=== PATIENT | male | born 1965 | race Caucasian/White ===

== ENCOUNTER 2018-02-19 10:44 | Observation (INO) ==
[2018-02-19] MEDS ORDERED: *HR* Promethazine 25 MG/ML VIAL IVP PRN (13:32)
[2018-02-19] MEDS ORDERED: Ondansetron 4 MG/2 ML VIAL IVP PRN (13:32)
[2018-02-19] MEDS ORDERED: Naloxone 0.4 MG/ML INJ IVP PRN (13:32)
--- NOTE | 2018-02-19 13:42 | General Surg History&Physical ---
Date of Encounter: 02/19/18 Time of Encounter: 13:39 Assessment and Plan (1) Diverticulitis Current Visit: Yes Status: Acute The assessment and plan as outlined above was discussed with the patient and/or family members who expressed understanding and agreement. All questions were answered. Acute uncomplicated diverticulitis involving the distal descending colon per CT on 02/13/2018. He has been on outpatient Cipro and Flagyl with continued discomfort. We will admit him for bowel rest and IV antibiotics. Plan: NPO IV fluids supportive care and discomfort management incentive spirometry G.I. and DVT prophylaxis ambulate as tolerated serial abdominal exams repeat a.m. labs History of Present Illness Chief complaint: Abdominal pain HPI: Mr. Estes is a 52 year old male who presents for admission to the hospital for failed outpatient therapy for known diverticulitis. His last colonoscopy was approximately 1.5 years ago. He had a CT recently which confirmed diverticulitis. He is been treated as an outpatient with PO Cipro Flagyl but states his discomfort is ongoing. He reports discomfort in the left lower quadrant he preemptively changed his diet to liquids only and states this as not been effective. Please see hard chart for printed copy of HPI. Past Med Surg Social Fam HX - Past Medical History Medical history: GERD, hyperlipidemia, hypertension Psychiatric history: no psych history - Past Surgical History Surgical History: cholecystectomy - Social History Smoking Status: Never smoker Alcohol use: none Drug use: none Medications and Allergies 3 Allergy/AdvReac Type Severity Reaction Status Date / Time No Known Allergies Allergy Verified 07/21/15 12:26 Review of Systems All systems PM: The remainder of the systems were reviewed and are negative General Surgery Exam Initial Vital Signs Temp Pulse Resp BP Pulse Ox 97.5 F L 106 15 169/105 93 02/19/18 13:36 02/19/18 13:36 02/19/18 13:36 02/19/18 13:36 02/19/18 13:36 Results - Labs 02/19/18 13:52 02/19/18 13:52 All other labs normal.
[2018-02-19 14:10] LABS: Basophils # 0.1 K/mcL (0.0-0.2); Basophils % 0.7 %; Eosinophils # 0.1 K/mcL (0.0-0.6); Eosinophils % 1.6 %; Hematocrit 48.6 % (37.5-50.1); Hemoglobin 16.8 g/dL (12.9-16.9); Immature Granulocytes % 0.5 % (0-4); Lymphocytes % 23.4 %; Mean Corpuscular HGB Conc 34.6 g/dL (31.6-35.5); Mean Corpuscular Volume 83.9 fL (83.0-100.0); Mean Platelet Volume 9.3 fL (9.4-12.4); Monocytes # 0.8 K/mcL (0.0-1.3); Monocytes % 8.8 %; Neutrophils # 5.6 K/mcL (1.6-8.9); Platelet Count 322 K/mcL (140-400); Red Blood Count 5.79 M/mcL (4.19-5.50); Red Cell Distribution Width 12.4 % (11.5-14.5)
[2018-02-19 14:36] LABS: Alanine Aminotransferase 48 Units/L (7-52); Albumin 4.5 g/dL (3.5-5.7); Albumin/Globulin Ratio 1.5 (1.1-2.2); Alkaline Phosphatase 90 Units/L (34-104); Amylase 44 Units/L (29-103); Aspartate Amino Transferase 34 Units/L (13-39); BUN/Creatinine Ratio 11 (6-26); Bilirubin,Direct 0.1 mg/dL (0.0-0.2); Bilirubin,Indirect 0.4 mg/dL (0.0-1.2); Bilirubin,Total 0.5 mg/dL (0.3-1.0); Blood Urea Nitrogen 14 mg/dL (6-20); Carbon Dioxide 28 mEq/L (23-29); Chloride 100 mEq/L (98-107); Glucose 96 mg/dL (70-105); Magnesium 2.2 mg/dL (1.6-2.6); Osmolality,Calculated 280 (280-300); Phosphorous 3.1 mg/dL (2.7-4.5); Potassium 4.1 mEq/L (3.5-5.1); Sodium 135 mEq/L (136-145); Total Protein 7.5 g/dL (6.4-8.9); eGFR For African Americans > 60 (> 60); eGFR For Non-African Americans 56 (> 60)
[2018-02-19] MEDS ORDERED: 0.9 % Sodium Chloride 1,000 ML IVC ONE (14:58)
[2018-02-19] MEDS: Pantoprazole 40 MG VIAL IVP SCH (15:07)
[2018-02-19] MEDS: MetroNIDAZOLE 500 MG/100 ML 500 MG/100 ML BAG IVPB SCH (15:07)
[2018-02-19] MEDS: OXYCODONE Oral CONC 10 MG/0.5 ML ORAL.SYG SL PRN ×2 (15:08→17:14)
[2018-02-19] MEDS: 0.9 % Sodium Chloride 1,000 ML IVC SCH (17:17)
[2018-02-20] MEDS: MetroNIDAZOLE 500 MG/100 ML 500 MG/100 ML BAG IVPB SCH ×4 (00:04→23:03)
[2018-02-20] MEDS: 0.9 % Sodium Chloride 1,000 ML IVC SCH ×4 (03:13→23:04)
[2018-02-20 06:01] LABS: Basophils # 0.1 K/mcL (0.0-0.2); Basophils % 1.1 %; Eosinophils # 0.2 K/mcL (0.0-0.6); Eosinophils % 2.5 %; Hematocrit 46.6 % (37.5-50.1); Hemoglobin 15.2 g/dL (12.9-16.9); Immature Granulocytes % 0.3 % (0-4); Lymphocytes # 2.1 K/mcL (0.6-4.6); Lymphocytes % 32.7 %; Mean Corpuscular HGB Conc 32.6 g/dL (31.6-35.5); Mean Corpuscular Hemoglobin 27.5 pg (28.0-33.3); Mean Corpuscular Volume 84.3 fL (83.0-100.0); Mean Platelet Volume 9.5 fL (9.4-12.4); Monocytes # 0.8 K/mcL (0.0-1.3); Monocytes % 12.1 %; Neutrophils # 3.3 K/mcL (1.6-8.9); Platelet Count 279 K/mcL (140-400); Red Blood Count 5.53 M/mcL (4.19-5.50); Red Cell Distribution Width 12.6 % (11.5-14.5); Segmented Neutrophils % 51.3 %
[2018-02-20 06:14] LABS: BUN/Creatinine Ratio 11 (6-26); Blood Urea Nitrogen 13 mg/dL (6-20); Calcium 9.1 mg/dL (8.6-10.3); Carbon Dioxide 28 mEq/L (23-29); Chloride 105 mEq/L (98-107); Glucose 87 mg/dL (70-105); Magnesium 2.3 mg/dL (1.6-2.6); Osmolality,Calculated 291 (280-300); Phosphorous 3.5 mg/dL (2.7-4.5); Potassium 4.8 mEq/L (3.5-5.1); Sodium 141 mEq/L (136-145); eGFR For African Americans > 60 (> 60); eGFR For Non-African Americans > 60 (> 60)
[2018-02-20] MEDS: Pantoprazole 40 MG VIAL IVP SCH (07:52)
[2018-02-20] MEDS: OXYCODONE Oral CONC 10 MG/0.5 ML ORAL.SYG SL PRN ×3 (07:52→15:33)
--- NOTE | 2018-02-20 09:54 | General Surgery Progress Note ---
Date of Encounter: 02/20/18 Time of Encounter: 07:15 - Assessment and Plan (1) Diverticulitis Current Visit: Yes Status: Acute Patient has been afebrile. White blood cell count normal at 6.5. Patient's abdominal symptoms have been improving. Patient responding to antibiotic treatment. Patient able to pass gas. - Continue Cipro and Flagyl IV. - Serial abdominal exams. -Clear liquid diet. - A.m. labs. - Will resume home medications. (2) DVT prophylaxis Current Visit: Yes Status: Acute 5000 Heparin SubQ BID. Subjective Narrative: Patient denies any fever, chills, nausea, or vomiting overnight. He has not had a bowel movement since admission but admits to passing gas. He says the pain has improved since yesterday from an 8 out of 10 to a 5 out of 10. Objective VITAL SIGNS: Reviewed. See [facility] GENERAL: No apparent distress. HEENT: [Normocephalic, PER, EOMi, oropharynx pink/moist, no JVD noted.] CV: b/l rad pulses 2+, RRR, no murmurs or gallops, no JVD RESPIRATORY: CTAB without wheezes, rales, or rhonchi ABD: Soft. Diffuse abdominal tenderness. No guarding. No rebound. Negative McBurney's point. EXTREMITY: grossly normal motor function, no pedal edema, peripheral pulses 2+ b /l NEUROLOGIC EXAM: AOx3, obeys commands, no speech deficits. PSYCHIATRIC: normal mood and affect SKIN: no gross lesions, rashes, or skin changes Vital Signs - Last 8 Hours Temp Pulse Resp BP Pulse Ox 02/20/18 07:26 97.3 F L 75 16 142/83 95 02/20/18 03:49 97.4 F L 77 15 134/84 94 Intake and Output 02/19/18 02/20/18 02/20/18 23:59 07:59 15:59 Intake Total 100 / 100 1300 / 1300 0 / 0 Output Total 0 / 0 0 / 0 Balance 100 / 100 1300 / 1300 0 / 0 Intake: IV Fluids 100 / 100 1300 / 1300 0.9 % Sodium Chloride 1,000 ML 1000 / 1000 @ 125 mls/hr IVC .Q8H [facility] Rx#: [id number] Cipro Premix 400 MG/200 ML 400 0 / 0 200 / 200 mg In 200 ml @ 200 mls/hr IVPB Q12HR [facility] Rx#:[id number] Flagyl Premix 500 MG/100 ML 500 100 / 100 100 / 100 mg In 100 ml @ 100 mls/hr IVPB Q8HR [facility] Rx#:[id number] Oral 0 / 0 0 / 0 Output: Urine 0 / 0 0 / 0 Other: Meal NPO NPO Percent of Meal Consumed 0% 0% # Bowel Movements 0 Weight 143.9 kg Blood Glucose* 91 84 Patient Weight 02/20/18 23:59 Weight 143.9 kg - Labs 02/20/18 05:26 02/20/18 05:26 Diabetes panel 02/19/18 02/20/18 Range/Units 13:52 05:26 Sodium 135 L 141 (136-145) mEq/L Potassium 4.1 4.8 (3.5-5.1) mEq/L Chloride 100 105 (98-107) mEq/L Carbon Dioxide 28 28 (23-29) mEq/L BUN 14 13 (6-20) mg/dL Creatinine 1.33 H 1.21 (0.70-1.30) mg/dL Glucose 96 87 (70-105) mg/dL Calcium 10.0 9.1 (8.6-10.3) mg/dL AST 34 (13-39) Units/L ALT 48 (7-52) Units/L Alkaline Phosphatase 90 (34-104) Units/L Albumin 4.5 (3.5-5.7) g/dL Calcium panel 02/19/18 02/20/18 Range/Units 13:52 05:26 Calcium 10.0 9.1 (8.6-10.3) mg/dL Phosphorus 3.1 3.5 (2.7-4.5) mg/dL Albumin 4.5 (3.5-5.7) g/dL Pituitary panel 02/19/18 02/20/18 Range/Units 13:52 05:26 Sodium 135 L 141 (136-145) mEq/L Potassium 4.1 4.8 (3.5-5.1) mEq/L Chloride 100 105 (98-107) mEq/L Carbon Dioxide 28 28 (23-29) mEq/L BUN 14 13 (6-20) mg/dL Creatinine 1.33 H 1.21 (0.70-1.30) mg/dL Glucose 96 87 (70-105) mg/dL Calcium 10.0 9.1 (8.6-10.3) mg/dL Adrenal panel 02/19/18 02/20/18 Range/Units 13:52 05:26 Sodium 135 L 141 (136-145) mEq/L Potassium 4.1 4.8 (3.5-5.1) mEq/L Chloride 100 105 (98-107) mEq/L Carbon Dioxide 28 28 (23-29) mEq/L BUN 14 13 (6-20) mg/dL Creatinine 1.33 H 1.21 (0.70-1.30) mg/dL Glucose 96 87 (70-105) mg/dL Calcium 10.0 9.1 (8.6-10.3) mg/dL Total Bilirubin 0.5 (0.3-1.0) mg/dL AST 34 (13-39) Units/L ALT 48 (7-52) Units/L Alkaline Phosphatase 90 (34-104) Units/L Albumin 4.5 (3.5-5.7) g/dL Consult Discharge Plan - Plan Referrals: Ethan Schaffer MD [Primary Care Provider] - 02/28/18 11:30 am
[2018-02-20] MEDS: *HR* Heparin 5,000 UNIT/ML VIAL SQ SCH (18:26)
[2018-02-21] MEDS: *HR* Heparin 5,000 UNIT/ML VIAL SQ SCH (06:06)
[2018-02-21 07:01] LABS: Basophils # 0.1 K/mcL (0.0-0.2); Basophils % 0.8 %; Eosinophils # 0.1 K/mcL (0.0-0.6); Eosinophils % 2.3 %; Hematocrit 46.3 % (37.5-50.1); Hemoglobin 15.3 g/dL (12.9-16.9); Immature Granulocytes % 0.5 % (0-4); Lymphocytes # 1.8 K/mcL (0.6-4.6); Lymphocytes % 30.6 %; Mean Corpuscular Hemoglobin 27.6 pg (28.0-33.3); Mean Corpuscular Volume 83.6 fL (83.0-100.0); Mean Platelet Volume 9.7 fL (9.4-12.4); Monocytes # 0.7 K/mcL (0.0-1.3); Monocytes % 10.8 %; Neutrophils # 3.3 K/mcL (1.6-8.9); Platelet Count 268 K/mcL (140-400); Red Blood Count 5.54 M/mcL (4.19-5.50); Red Cell Distribution Width 12.5 % (11.5-14.5)
[2018-02-21 07:16] LABS: BUN/Creatinine Ratio 10 (6-26); Blood Urea Nitrogen 10 mg/dL (6-20); Calcium 8.9 mg/dL (8.6-10.3); Carbon Dioxide 26 mEq/L (23-29); Chloride 105 mEq/L (98-107); Glucose 86 mg/dL (70-105); Osmolality,Calculated 280 (280-300); Potassium 3.8 mEq/L (3.5-5.1); Sodium 136 mEq/L (136-145); eGFR For African Americans > 60 (> 60); eGFR For Non-African Americans > 60 (> 60)
--- NOTE | 2018-02-21 07:55 | General Surgery Progress Note ---
Date of Encounter: 02/21/18 Time of Encounter: 07:53 - Assessment and Plan (1) Diverticulitis Current Visit: Yes Status: Acute Patient has been afebrile. White blood cell count normal at 6.0. Patient's abdominal symptoms have been improving. Patient responding to antibiotic treatment. Patient able to pass gas. - Day # 3 of ABX. Continue Cipro and Flagyl IV. - Serial abdominal exams. - Advanced to low-residue diet. Paln to discharge once patient has been able to tolerate. - A.m. labs. - Continue home medications. (2) DVT prophylaxis Current Visit: Yes Status: Acute 5000 Heparin SubQ BID. Subjective Narrative: Patient says abdominal pain has mostly resolved. He denies any nausea or vomiting. He had 1 bowel movement yesterday morning. Denies any melena or hematochezia. Has been able to pass gas. Denies any chest pain or shortness of breath. Objective VITAL SIGNS: Reviewed. See [facility] GENERAL: No apparent distress. HEENT: [Normocephalic, PER, EOMi, oropharynx pink/moist, no JVD noted.] CV: b/l rad pulses 2+, RRR, no murmurs or gallops, no JVD RESPIRATORY: CTAB without wheezes, rales, or rhonchi ABD: soft, non-tender, no rebound/guarding/rigidity, no peritoneal signs EXTREMITY: grossly normal motor function, no pedal edema, peripheral pulses 2+ b /l NEUROLOGIC EXAM: AOx3, obeys commands, no speech deficits. PSYCHIATRIC: normal mood and affect SKIN: no gross lesions, rashes, or skin changes Vital Signs - Last 8 Hours Temp Pulse Resp BP Pulse Ox 02/21/18 07:02 97.8 F 86 18 150/84 95 02/21/18 03:40 97.7 F 81 16 138/86 94 Intake and Output 02/20/18 02/20/18 02/21/18 15:59 23:59 07:59 Intake Total 1250 / 1250 2440 / 2440 550 / 550 Output Total 1400 / 1400 1350 / 1350 Balance 1250 / 1250 1040 / 1040 -800 / -800 Intake: IV Fluids 1250 / 1250 1100 / 1100 300 / 300 0.9 % Sodium Chloride 1,000 ML 950 / 950 1000 / 1000 @ 125 mls/hr IVC .Q8H [facility] Rx#: [id number] Cipro Premix 400 MG/200 ML 400 200 / 200 200 / 200 mg In 200 ml @ 200 mls/hr IVPB Q12HR [facility] Rx#:[id number] Flagyl Premix 500 MG/100 ML 500 100 / 100 100 / 100 100 / 100 mg In 100 ml @ 100 mls/hr IVPB Q8HR [facility] Rx#:[id number] Oral 0 / 0 1340 / 1340 250 / 250 Output: Urine 1400 / 1400 1350 / 1350 Other: Meal NPO Dinner Percent of Meal Consumed 0% # Voids 3 Weight 143.6 kg Blood Glucose* 94 Patient Weight 02/21/18 23:59 Weight 143.6 kg - Labs 02/21/18 05:49 02/21/18 05:49 Diabetes panel 02/21/18 Range/Units 05:49 Sodium 136 (136-145) mEq/L Potassium 3.8 (3.5-5.1) mEq/L Chloride 105 (98-107) mEq/L Carbon Dioxide 26 (23-29) mEq/L BUN 10 (6-20) mg/dL Creatinine 0.96 (0.70-1.30) mg/dL Glucose 86 (70-105) mg/dL Calcium 8.9 (8.6-10.3) mg/dL Calcium panel 02/21/18 Range/Units 05:49 Calcium 8.9 (8.6-10.3) mg/dL Pituitary panel 02/21/18 Range/Units 05:49 Sodium 136 (136-145) mEq/L Potassium 3.8 (3.5-5.1) mEq/L Chloride 105 (98-107) mEq/L Carbon Dioxide 26 (23-29) mEq/L BUN 10 (6-20) mg/dL Creatinine 0.96 (0.70-1.30) mg/dL Glucose 86 (70-105) mg/dL Calcium 8.9 (8.6-10.3) mg/dL Adrenal panel 02/21/18 Range/Units 05:49 Sodium 136 (136-145) mEq/L Potassium 3.8 (3.5-5.1) mEq/L Chloride 105 (98-107) mEq/L Carbon Dioxide 26 (23-29) mEq/L BUN 10 (6-20) mg/dL Creatinine 0.96 (0.70-1.30) mg/dL Glucose 86 (70-105) mg/dL Calcium 8.9 (8.6-10.3) mg/dL Consult Discharge Plan - Plan Referrals: Luci Vasques CNP [Advanced Practice Nurse] - 03/01/18 11:30 am Ethan Schaffer MD [Primary Care Provider] - 02/28/18 11:30 am Prescriptions: Ciprofloxacin [Cipro] 500 mg PO BID 10 Days #20 tablet metroNIDAZOLE [Metronidazole] 500 mg PO TID 10 Days #30 tablet
[2018-02-21] MEDS: 0.9 % Sodium Chloride 1,000 ML IVC SCH (08:30)
[2018-02-21] MEDS: MetroNIDAZOLE 500 MG/100 ML 500 MG/100 ML BAG IVPB SCH (08:31)
[2018-02-21] MEDS: Pantoprazole 40 MG VIAL IVP SCH (08:31)
--- NOTE | 2018-02-21 10:19 | Discharge Summary ---
Date of Encounter: 02/21/18 Time of Encounter: 07:53 - Discharge Diagnosis (1) Diverticulitis Priority: Primary Status: Acute General Surgery Exam VITAL SIGNS: Reviewed. See [facility] GENERAL: No apparent distress. HEENT: [Normocephalic, PER, EOMi, oropharynx pink/moist, no JVD noted.] CV: b/l rad pulses 2+, RRR, no murmurs or gallops, no JVD RESPIRATORY: CTAB without wheezes, rales, or rhonchi ABD: soft, non-tender, no rebound/guarding/rigidity, no peritoneal signs EXTREMITY: grossly normal motor function, no pedal edema, peripheral pulses 2+ b /l NEUROLOGIC EXAM: AOx3, obeys commands, no speech deficits. PSYCHIATRIC: normal mood and affect SKIN: no gross lesions, rashes, or skin changes Initial Vital Signs Temp Pulse Resp BP Pulse Ox 97.5 F L 106 15 169/105 93 02/19/18 13:36 02/19/18 13:36 02/19/18 13:36 02/19/18 13:36 02/19/18 13:36 - Hospital Course Hospital course: 52 year old male with a PMH of GERD, hyperlipidemia, hypertension and a PSH of cholecystectomy who presented for to the hospital for failed outpatient therapy for known diverticulitis. His last colonoscopy was approximately 1.5 years ago. He had a CT recently which confirmed diverticulitis. He is been treated as an outpatient with PO Cipro Flagyl but states his discomfort is ongoing. He reported discomfort in the left lower quadrant he preemptively changed his diet to liquids only and states this as not been effective. Patient was put NPO and started on IV ciprofloxacin and flagyl. His symptoms continued to improve with each day in the hospital as he was responding to the antibiotics. Today he says his abdominal pain has mostly resolved. He denies any nausea or vomiting. He had 1 bowel movement yesterday morning. Denies any melena or hematochezia. Has been able to pass gas. Denies any chest pain or shortness of breath. His WBC has been normal at 6 and he has been afebrile. He will be transitioned to a low- residue diet and once he is ableto tolerate it he will be dicharged home with a 10 day supply of oral ciprofloxacin and metronidazole. Patient will also be educated on proper nutrition of a low-fiber diet before discharge. Patient warned that if he develops a fever or develops any abdominal pain to report to the ER immediately. - Time Spent with Patient Total time spent providing and/or coordinating discharge services: Less than 30 minutes - Discharge Medications Prescriptions: Ciprofloxacin [Cipro] 500 mg PO BID 10 Days #20 tablet metroNIDAZOLE [Metronidazole] 500 mg PO TID 10 Days #30 tablet Home Medications: Amitriptyline [Elavil] 25 mg PO HS 02/19/18 [History] DULoxetine [Cymbalta] 30 mg PO DAILY 02/19/18 [History] Ciprofloxacin HCl [Cipro] 500 mg PO BID 02/20/18 [History] HYDROcodone/Acet 5/325 mg [[place] 5-325 mg] 1 tab PO Q6H PRN 02/20/18 [History] metroNIDAZOLE [Flagyl] 500 mg PO Q8H 02/20/18 [History] Ciprofloxacin [Cipro] 500 mg PO BID 10 Days #20 tablet 02/21/18 [Rx] metroNIDAZOLE [Metronidazole] 500 mg PO TID 10 Days #30 tablet 02/21/18 [Rx] Allergies/Adverse Reactions: 3 Allergy/AdvReac Type Severity Reaction Status Date / Time No Known Allergies Allergy Verified 07/21/15 12:26 Date of admission: 02/19/18 13:06 Primary care physician: Ethan Schaffer MD Consults: 02/21/18 10:09 consult to rn new graduate [Consult to Nutrition] [CONS] Stat Comment: Low residue diet; discharge at lunch time Consulting Provider: NUTRITION Reason for Dietary Consult: Diet Education Discharging clinician: Hi Álvarez Anticipated date of discharge: 02/21/18 Labs on day of discharge: Labs from last 24 hours 02/21/18 02/21/18 05:49 05:49 WBC 6.0 RBC 5.54 H Hgb 15.3 Hct 46.3 MCV 83.6 MCH 27.6 L MCHC 33.0 RDW 12.5 Plt Count 268 MPV 9.7 Immature Gran % 0.5 Seg Neutrophils % 55.0 Lymphocytes % 30.6 Monocytes % 10.8 Eosinophils % 2.3 Basophils % 0.8 Neutrophils # 3.3 Lymphocytes # 1.8 Monocytes # 0.7 Eosinophils # 0.1 Basophils # 0.1 Sodium 136 Potassium 3.8 Chloride 105 Carbon Dioxide 26 BUN 10 Creatinine 0.96 Est GFR ( Amer) > 60 Est GFR (Non-Af Amer) > 60 BUN/Creatinine Ratio 10 Glucose 86 Calculated Osmolality 280 Calcium 8.9 - Patient Status Disposition: Home, Self-Care Condition: Good Functional capacity at discharge: independent ambulation Overall status at discharge: patient is progressing back to baseline - Discharge Instructions Follow Up With: Luci Vasques CNP [Advanced Practice Nurse] - 03/01/18 11:30 am Ethan Schaffer MD [Primary Care Provider] - 02/28/18 11:30 am Forms: Inpatient Work/School Release - Diet and Activity Activity: resume usual activities as tolerated Diet: other (Low-fiber diet)
[2018-02-21 11:21] VITALS: BP 152/91
== END 2018-02-21 12:44 | disposition home or self-care (01) ==
LOC: 3ANU
PROVIDERS: ADMIT Surgery; ATTEND Surgery

== ENCOUNTER 2018-03-21 10:50 | Inpatient (IN) ==
--- NOTE | 2018-03-21 08:38 | Anesthesia Evaluation PreOp ---
Date of Encounter: 03/21/18 Time of Encounter: 11:41 - Past History Planned Operation: Robotic Sigmoid Colon Resection Cardiac History: Denies any Significant Hx Pulmonary History: Denies Any Significant HX [employer] History: Denies Any Significant HX Other Medical History: Other (diverticulosis) Anesthesia History: No Prior Anesthetic Complications, Past Anesthesia Alcohol Use: none Drug use: none Medications and Allergies Amitriptyline [Elavil] 25 mg PO HS 02/19/18 [History] DULoxetine [Cymbalta] 30 mg PO DAILY 02/19/18 [History] Ciprofloxacin HCl [Cipro] 500 mg PO BID 02/20/18 [History] HYDROcodone/Acet 5/325 mg [[place] 5-325 mg] 1 tab PO Q6H PRN 02/20/18 [History] metroNIDAZOLE [Flagyl] 500 mg PO Q8H 02/20/18 [History] Ciprofloxacin [Cipro] 500 mg PO BID 10 Days #20 tablet 02/21/18 [Rx] metroNIDAZOLE [Metronidazole] 500 mg PO TID 10 Days #30 tablet 02/21/18 [Rx] 3 Allergy/AdvReac Type Severity Reaction Status Date / Time No Known Allergies Allergy Verified 07/21/15 12:26 - Meds/Allergy Pre-op Review Medications Reviewed: Yes Allergies Reviewed: Yes Beta Blockers on Current Med List: No Anesthesia Results - Labs Laboratory Tests 02/19/18 02/21/18 02/21/18 13:52 05:49 05:49 WBC 6.0 Hgb 15.3 Hct 46.3 Plt Count 268 APTT 34.7 Sodium 136 Potassium 3.8 BUN 10 Creatinine 0.96 Anesthesia Exam Vital Signs/O2 Sat, Most Current Temp Pulse Resp BP Pulse Ox 97.8 F 103 18 148/84 96 03/21/18 11:12 03/21/18 11:12 03/21/18 11:12 03/21/18 11:12 03/21/18 11:12 Height: 6'4'' Weight: 307 lbs NPO (# of Hours): 8 Pain Scale: 0 Pain Scale Used: Numeric (1 - 10) - HEENT Pupil (Motor): EOMI Mallampati: III Teeth: Normal Oral Opening: Greater than 3 - AUTO CARRIER [employer]IVER LOC: Oriented [employer]ER [employer] Motor: Normal RUE, Normal LUE, Normal RLE, Normal LLE, Normal Face [employer]ER [employer] Sensory: Normal: RUE, LUE, RLE, LLE, Face - Cardiac Rhythm: Regular Murmur: None - Pulmonary Breath Sounds: bilateral Clear Respiratory Effort: Symmetrical Anesthesia Assess/Plan ASA Score: 2 Modified Sergei Scale for Level of Consciousness: Cooperative, oriented, and tranquil Anesthetic Plan: General Monitoring Plan: Standard Monitors Recovery Plan: PACU
[2018-03-21] MEDS ORDERED: cefOXitin 2,000 MG in Water for inj. (sterile) 20 ML 20 ML IVP ONE (11:50)
[2018-03-21] MEDS ORDERED: Ringers Solution, Lactated 1,000 ML IVC SCH (12:00)
[2018-03-21] MEDS ORDERED: *HR* FentaNYL (PF) 100 MCG/2 ML VIAL ONE (12:37)
[2018-03-21] MEDS ORDERED: *HR* Midazolam HCl 2 MG/2 ML VIAL ONE (12:37)
[2018-03-21] MEDS ORDERED: *HR* Propofol 200 MG/20 ML VIAL IVP ONE ×2 (12:37→14:01)
[2018-03-21] MEDS ORDERED: Ketorolac 30 MG/ML VIAL ONE ×2 (12:39→17:49)
[2018-03-21] MEDS ORDERED: *HR* Morphine 10 MG/ML VIAL ONE (12:52)
--- NOTE | 2018-03-21 13:02 | History & Physical Report ---
Date of Encounter: 03/21/18 Time of Encounter: 13:02 24 Hour HP Update - Instructions Instructions: If the History and Physical is less than 30 days old and was completed prior to A.M. admission and or procedure and has NOT been updated on calendar day of procedure please complete this update prior to performing procedure. - Update Patient reports changes in Medical Condition: No Changes in examination, assessment, or condition: No Changes in Medication: No Preop tests/diagnostics Reviewed: Yes Surgery Remains Indicated: Yes Consent for Planned Operative Procedure(s) Verified: Yes - Pre-Operative Checklist Preoperative Checklist Indicated: Yes Prophylactic Antibiotic Ordered: Yes Home Medications Include Beta Arnold: No
--- NOTE | 2018-03-21 13:11 | History & Physical Report ---
Date of Encounter: 03/21/18 Time of Encounter: 12:00 24 Hour HP Update - Instructions Instructions: If the History and Physical is less than 30 days old and was completed prior to A.M. admission and or procedure and has NOT been updated on calendar day of procedure please complete this update prior to performing procedure. - Update Patient reports changes in Medical Condition: No Changes in examination, assessment, or condition: No Changes in Medication: No Preop tests/diagnostics Reviewed: Yes Surgery Remains Indicated: Yes Consent for Planned Operative Procedure(s) Verified: Yes
[2018-03-21] MEDS ORDERED: MORPHINE SUL Oral CONC 10 MG/0.5 ML ORAL.SYG SL PRN (13:30)
[2018-03-21] MEDS ORDERED: Ondansetron 4 MG/2 ML VIAL IVP ONE (13:30)
[2018-03-21] MEDS ORDERED: *HR* Promethazine 25 MG/ML VIAL IVP PRN (13:30)
[2018-03-21] MEDS ORDERED: *HR* HYDROmorphone 2 MG TABLET PO PRN (13:30)
[2018-03-21] MEDS ORDERED: *HR* OxyCODONE Immed Rel 5 MG TABLET PO PRN (13:30)
[2018-03-21] MEDS ORDERED: Acetaminophen IV 1,000 MG/100 ML INFUS..BTL ONE (13:32)
[2018-03-21] MEDS ORDERED: Ondansetron 4 MG/2 ML VIAL ONE (14:18)
[2018-03-21] MEDS ORDERED: Dexamethasone 4 MG/ML VIAL ONE (14:18)
[2018-03-21] MEDS ORDERED: *HR* PHENYLEPHRINE 1,000 MCG/10 ML SYRINGE IVP ONE (14:20)
[2018-03-21] MEDS ORDERED: *HR* Rocuronium Bromide 50 MG/5 ML VIAL ONE (14:47)
--- NOTE | 2018-03-21 17:16 | Operative Note ---
Date of procedure: 03/21/18 Pre-op diagnosis: Sigmoid diverticulitis Post-op diagnosis: same Procedure: Robotic sigmoid colectomy with takedown of splenic flexure Anesthesia: JANAE Surgeon: Ben Roberto Was there an assistant dean of students present: Yes Route Delivery Clerk: Juana Mccormick Estimated blood loss (cc): 25 Specimen: Sigmoid colon Condition: stable Disposition: floor Procedure in Detail: After informed consent, patient taken operating room placed supine position. After adequate sedation anesthesia patient was placed in a lithotomy position. After proper timeout a 12 mm cannula site was placed right superior to the umbilicus. Pneumoperitoneum was greater. A 13 mm cannula was placed in right lower quadrant. 5 mm camera was placed in the right upper quadrant. An 8 mm cannula was placed in subxiphoid region followed by another 8 mm in the left lower quadrant. Patient was placed in a headdown position. The robot was docked over the patient's left hip. Small bowel swept out of the pelvis. Rectosigmoid colon was then grasped and retracted cephalad. The peritoneum was then scored level of the sacral promontory. The left ureter was identified and kept on harm's way. The inferior mesenteric artery was then taken with a vessel sealer. The lateral rectosigmoid stalks were taken down the vessel sealer. The dissection was carried out down to approximate 4 cm above the pelvic floor. Rectosigmoid colon was dissected free from the retro-pubic tubercle region. Once it was freed a 45 mm robotic Endo staplers fired across the rectum. Once it was retracted and area was demarcated on the sigmoid colon for transection. Indocyanine green was infused and we had excellent perfusion. The splenic flexure was also taken down and mobilized. This mobilization allowed for less tension on the anastomosis. A counterincision was made in the suprapubic region. Dissection carried down the anterior rectus sheath. The rectus muscles were then divided in the midline with Abbi clamp. Once they were split the rectosigmoid colon was delivered. Lester bowel clamps are used to place across the colon proximal and distal and transected. Allis clamps are placed on the bowel and then a pursestring suture device placed on the colon. 3-0 Prolene suture was passed. A pursestring sutures and created and a 29 mm EEA anvil was placed. Suture was tied and secured. Colon was then placed back in the pelvis. The stapler was passed through the anal canal and to the rectal stump and then the spear was placed through the staple line. The anvil was then connected secured and fired. There were 2 excellent donuts. There were several 2-0 silk sutures used to buttress the staple line. A leak test revealed no leak. At that point the procedure was terminated. All incisions are closed with 0 Vicryl suture and 4-0 Vicryl suture. Marcaine was inserted in the Pfannenstiel incision. He tolerated the procedure well.
[2018-03-21] MEDS ORDERED: Ondansetron 4 MG/2 ML VIAL IVP PRN (17:18)
[2018-03-21] MEDS ORDERED: Naloxone 0.4 MG/ML INJ IVP PRN (17:18)
[2018-03-21] MEDS ORDERED: *HR* HYDROmorphone 2 MG/ML SYRINGE ONE (18:03)
--- NOTE | 2018-03-21 18:20 | Anesthesia Evaluation Post Op ---
Date of Encounter: 03/21/18 Time of Encounter: 18:08 - Vital Signs Vital Signs: vss - Lungs Lungs: Clear Ascult./Percussion - Airway Airway: Non-obstructed - Cardiovascular Baseline Rhythm - Mental Status Mental Status: Asleep with brisk response to light stimulation - Pain Pain Scale used: Sergio (Faces) (okay to discharge when pain is tolerable) - Nausea Vomiting Nausea Vomiting: Not Present - Hydration Hydration: Ice chips - Discharge PostOp Status: Transfer Patient to floor
[2018-03-21] MEDS: *HR* Heparin 5,000 UNIT/ML VIAL SQ SCH (18:39)
[2018-03-21] MEDS: 0.9 % Sodium Chloride 1,000 ML IVC SCH (18:39)
[2018-03-21] MEDS: OXYCODONE Oral CONC 10 MG/0.5 ML ORAL.SYG SL PRN (23:41)
[2018-03-22] MEDS: *HR* Heparin 5,000 UNIT/ML VIAL SQ SCH ×2 (05:24→18:15)
[2018-03-22] MEDS: 0.9 % Sodium Chloride 1,000 ML IVC SCH (05:28)
[2018-03-22] MEDS: OXYCODONE Oral CONC 10 MG/0.5 ML ORAL.SYG SL PRN ×2 (05:29→12:59)
[2018-03-22 06:37] LABS: Basophils % 0.1 %; Hematocrit 41.9 % (37.5-50.1); Hemoglobin 13.7 g/dL (12.9-16.9); Immature Granulocytes % 0.4 % (0-4); Lymphocytes # 0.8 K/mcL (0.6-4.6); Lymphocytes % 6.2 %; Mean Corpuscular HGB Conc 32.7 g/dL (31.6-35.5); Mean Corpuscular Volume 85.5 fL (83.0-100.0); Mean Platelet Volume 10.1 fL (9.4-12.4); Monocytes # 0.9 K/mcL (0.0-1.3); Monocytes % 6.3 %; Neutrophils # 11.8 K/mcL (1.6-8.9); Platelet Count 233 K/mcL (140-400); Red Cell Distribution Width 12.4 % (11.5-14.5)
[2018-03-22 07:02] LABS: BUN/Creatinine Ratio 14 (6-26); Blood Urea Nitrogen 18 mg/dL (6-20); Calcium 8.6 mg/dL (8.6-10.3); Carbon Dioxide 24 mEq/L (23-29); Chloride 103 mEq/L (98-107); Glucose 135 mg/dL (70-105); Osmolality,Calculated 284 (280-300); Potassium 4.7 mEq/L (3.5-5.1); Sodium 135 mEq/L (136-145); eGFR For African Americans > 60 (> 60); eGFR For Non-African Americans 59 (> 60)
[2018-03-22] MEDS ORDERED: *HR* OxyCODONE/APAP 5/325 TABLET PO PRN (08:50)
[2018-03-22] MEDS ORDERED: Ondansetron ODT 4 MG TAB.RAPDIS SL PRN (08:51)
[2018-03-22] MEDS ORDERED: OXYCODONE Oral CONC 10 MG/0.5 ML ORAL.SYG SL PRN (08:52)
--- NOTE | 2018-03-22 08:58 | General Surgery Progress Note ---
Date of Encounter: 03/22/18 Time of Encounter: 08:45 - Assessment and Plan (1) S/P colon resection Current Visit: Yes Status: Acute Date of procedure: 03/21/18 Pre-op diagnosis: Sigmoid diverticulitis Post-op diagnosis: same Procedure: Robotic sigmoid colectomy with takedown of splenic flexure POD#1 as above for history of diverticulitis. Aleksander states his pain is not overall controlled however he had not been asking for very much pain medication for fear of appearance of drug seeking. I did reassure him that he had had a significant abdominal surgical procedure and that pain medication was completely appropriate. His abdominal exam is otherwise as expected. He is ambulating in the room, tolerating his clear liquids without nausea or vomiting, and voiding without difficulty. Plan: continue supportive care and discomfort management while awaiting full return of bowel function add scheduled Toradol x2 doses, then may switch to scheduled PO ibuprofen add PRN oxycodone/acetaminophen continue/increased sublingual oxycodone for breakthrough pain ambulate TID out of bed to chair for all meals stop IV fluids may premedicate with sublingual Zofran prior to narcotic administration while he is on a liquid diet continue G.I. and DVT prophylaxis DC planning in the next 24 to 48 hours pending pain control and bowel function (2) Diverticulitis Current Visit: No Status: Acute See assessment and plan above (3) DVT prophylaxis Current Visit: Yes Status: Acute EPCDs while in bed Heparin SQ Early infrequent ambulation Subjective Narrative: Aleksander states his abdominal discomfort is not well controlled at this time. He reports he had been afraid to ask for very much pain medication because he didn' t want to seem as though he was "just asking for it." He denies nausea or vomiting. He states he is tolerating is clear liquid diet. He denies passing gas or having a bowel movement but states his "stomach is rumbling and feels like it's going to do something." He states he is urinating without difficulty. Objective Vital Signs - Last 8 Hours Temp Pulse Resp BP Pulse Ox 03/22/18 07:44 97.5 F L 88 16 120/71 94 03/22/18 04:08 97.5 F L 88 16 120/78 95 Intake and Output 03/21/18 03/22/18 03/22/18 23:59 07:59 15:59 Intake Total 1600 / 1600 Output Total 925 / 925 Balance -25 / 25 675 / 675 Intake: IV Fluids 1000 / 1000 0.9 % Sodium Chloride 1,000 ML 1000 / 1000 @ 90 mls/hr IVC .[id number] MITUL Rx# :[id number] Oral 600 / 600 Output: Urine 0 / 0 925 / 925 Estimated Blood Loss Other: Weight 139.2 kg Patient Weight 03/22/18 23:59 Weight 139.2 kg VITAL SIGNS: Reviewed. See [facility] GENERAL: In no apparent distress. Standing up in room at bedside, eating from its clear liquid tray. HEENT: Normocephalic, atraumatic, pupils are equal and reactive, extraocular motions intact, oropharynx is pink and moist, there is no neck adenopathy or JVD noted. CHEST/RESPIRATORY: The thorax is free from signs of trauma. Lung sounds: clear to auscultation, normal respiratory effort CARDIAC: Regular rate and rhythm. Normal S1 and S2, without murmurs, gallops, or rubs. VASCULAR: No Edema. 2+ peripheral pulses. ABDOMEN: soft, tender, active bowel sounds INCISION: Surgical incision is clean, dry, and intact. There are no signs of cellulitis or infection noted. WOUNDS/DRAINS: N/A MUSCULOSKELETAL: Good range of motion of all major joints. Extremities without clubbing, cyanosis or edema. NEUROLOGIC EXAM: Alert and oriented x 3. Speech normal. Follows commands. PSYCHIATRIC: Mood normal. SKIN: No rash or lesions. - Labs 03/22/18 05:43 03/22/18 05:43 Diabetes panel 03/22/18 Range/Units 05:43 Sodium 135 L (136-145) mEq/L Potassium 4.7 (3.5-5.1) mEq/L Chloride 103 (98-107) mEq/L Carbon Dioxide 24 (23-29) mEq/L BUN 18 (6-20) mg/dL Creatinine 1.27 (0.70-1.30) mg/dL Glucose 135 H (70-105) mg/dL Calcium 8.6 (8.6-10.3) mg/dL Calcium panel 03/22/18 Range/Units 05:43 Calcium 8.6 (8.6-10.3) mg/dL Pituitary panel 03/22/18 Range/Units 05:43 Sodium 135 L (136-145) mEq/L Potassium 4.7 (3.5-5.1) mEq/L Chloride 103 (98-107) mEq/L Carbon Dioxide 24 (23-29) mEq/L BUN 18 (6-20) mg/dL Creatinine 1.27 (0.70-1.30) mg/dL Glucose 135 H (70-105) mg/dL Calcium 8.6 (8.6-10.3) mg/dL Adrenal panel 03/22/18 Range/Units 05:43 Sodium 135 L (136-145) mEq/L Potassium 4.7 (3.5-5.1) mEq/L Chloride 103 (98-107) mEq/L Carbon Dioxide 24 (23-29) mEq/L BUN 18 (6-20) mg/dL Creatinine 1.27 (0.70-1.30) mg/dL Glucose 135 H (70-105) mg/dL Calcium 8.6 (8.6-10.3) mg/dL - VTE Documentation of Mechanical Device: Intermittent pneumatic compression device Consult Discharge Plan - Plan Referrals: Hina Patiño, RESEARCH DIRECTOR [Advanced Practice Nurse] - 04/03/18 1:00 pm
[2018-03-22] MEDS: Ketorolac 30 MG/ML VIAL IVP SCH ×2 (09:14→18:15)
[2018-03-22] MEDS ORDERED: Ketorolac 30 MG/ML VIAL IVP SCH (18:00)
[2018-03-22] MEDS ORDERED: Ibuprofen 800 MG TABLET PO SCH (22:00)
[2018-03-22] MEDS: Ibuprofen 800 MG TABLET PO SCH (22:02)
[2018-03-23 05:31] LABS: Basophils % 0.3 %; Eosinophils # 0.1 K/mcL (0.0-0.6); Eosinophils % 1.1 %; Hematocrit 39.3 % (37.5-50.1); Immature Granulocytes % 0.3 % (0-4); Lymphocytes # 2.7 K/mcL (0.6-4.6); Lymphocytes % 30.7 %; Mean Corpuscular HGB Conc 33.1 g/dL (31.6-35.5); Mean Corpuscular Hemoglobin 28.1 pg (28.0-33.3); Mean Corpuscular Volume 85.1 fL (83.0-100.0); Mean Platelet Volume 9.9 fL (9.4-12.4); Monocytes # 0.9 K/mcL (0.0-1.3); Monocytes % 10.7 %; Platelet Count 220 K/mcL (140-400); Red Blood Count 4.62 M/mcL (4.19-5.50); Red Cell Distribution Width 12.6 % (11.5-14.5); Segmented Neutrophils % 56.9 %
[2018-03-23 05:33] LABS: BUN/Creatinine Ratio 13 (6-26); Blood Urea Nitrogen 14 mg/dL (6-20); Calcium 8.9 mg/dL (8.6-10.3); Carbon Dioxide 28 mEq/L (23-29); Chloride 105 mEq/L (98-107); Glucose 95 mg/dL (70-105); Osmolality,Calculated 286 (280-300); Sodium 138 mEq/L (136-145); eGFR For African Americans > 60 (> 60); eGFR For Non-African Americans > 60 (> 60)
[2018-03-23] MEDS: Ibuprofen 800 MG TABLET PO SCH (05:37)
[2018-03-23] MEDS: *HR* Heparin 5,000 UNIT/ML VIAL SQ SCH (05:38)
[2018-03-23] MEDS: OXYCODONE Oral CONC 10 MG/0.5 ML ORAL.SYG SL PRN (09:40)
--- NOTE | 2018-03-23 10:26 | General Surgery Progress Note ---
Date of Encounter: 03/23/18 Time of Encounter: 10:00 - Assessment and Plan (1) Diverticulitis Current Visit: No Status: Acute (2) DVT prophylaxis Current Visit: Yes Status: Acute Subjective Patient reports: no new complaints, feels better, still having pain, pain is less, tolerating liquids well, voiding w/o difficulty, flatus, bowel movement, afebrile Objective Vital Signs - Last 8 Hours Temp Pulse Resp BP Pulse Ox 03/23/18 06:48 97.7 F 81 15 133/79 94 03/23/18 04:08 98.1 F 89 17 136/72 96 Intake and Output 03/22/18 03/23/18 03/23/18 23:59 07:59 15:59 Intake Total 480 / 480 0 / 0 360 / 360 Output Total 1025 / 1025 1625 / 1625 600 / 600 Balance -545 / -545 -1625 / -1625 -240 / -240 Intake: Oral 480 / 480 0 / 0 360 / 360 Output: Urine 1025 / 1025 1625 / 1625 600 / 600 Other: Meal Dinner Breakfast Percent of Meal Consumed 50% 100% Stool Size Small Stool Consistency soft Stool Characteristics Normal for Patient Stool Color Brown Weight 138.9 kg Patient Weight 03/23/18 23:59 Weight 138.9 kg - General physical appearance well developed, well nourished, no distress - Eyes normal ocular movement - ENT normal mucosa, atraumatic, normocephalic - Neck Neck exam: trachea midline - Respiratory normal respiratory effort, clear to auscultation - Cardiovascular Cardiovascular exam: Present: RRR - Abdomen Abdomen: Present: bowel sounds present, soft, tender (expected post-operative discomfort) - Incision Incision: Present: clean and dry, intact - Integumentary no rash, no growths, no abnormal pigmentation - Neurologic CN 2-12 grossly intact - Musculoskeletal normal gait, normal posture - Psychiatric oriented to time, oriented to person, oriented to place, speech is normal, memory intact - Labs 03/23/18 04:38 03/23/18 04:38 Diabetes panel 03/23/18 Range/Units 04:38 Sodium 138 (136-145) mEq/L Potassium 4.0 (3.5-5.1) mEq/L Chloride 105 (98-107) mEq/L Carbon Dioxide 28 (23-29) mEq/L BUN 14 (6-20) mg/dL Creatinine 1.07 (0.70-1.30) mg/dL Glucose 95 (70-105) mg/dL Calcium 8.9 (8.6-10.3) mg/dL Calcium panel 03/23/18 Range/Units 04:38 Calcium 8.9 (8.6-10.3) mg/dL Pituitary panel 03/23/18 Range/Units 04:38 Sodium 138 (136-145) mEq/L Potassium 4.0 (3.5-5.1) mEq/L Chloride 105 (98-107) mEq/L Carbon Dioxide 28 (23-29) mEq/L BUN 14 (6-20) mg/dL Creatinine 1.07 (0.70-1.30) mg/dL Glucose 95 (70-105) mg/dL Calcium 8.9 (8.6-10.3) mg/dL Adrenal panel 03/23/18 Range/Units 04:38 Sodium 138 (136-145) mEq/L Potassium 4.0 (3.5-5.1) mEq/L Chloride 105 (98-107) mEq/L Carbon Dioxide 28 (23-29) mEq/L BUN 14 (6-20) mg/dL Creatinine 1.07 (0.70-1.30) mg/dL Glucose 95 (70-105) mg/dL Calcium 8.9 (8.6-10.3) mg/dL - VTE Documentation of Mechanical Device: Intermittent pneumatic compression device Consult Discharge Plan - Plan Referrals: Hina Patiño CNP [Advanced Practice Nurse] - 04/03/18 1:00 pm
--- NOTE | 2018-03-23 10:32 | Discharge Summary ---
Orders not resulted at time of discharge: Pending orders 03/21/18 16:41 Surgical Pathology [PTH] Routine Date of Encounter: 03/23/18 Time of Encounter: 10:30 - Discharge Diagnosis (1) Diverticulitis Priority: Primary Status: Acute General Surgery Exam Initial Vital Signs Temp Pulse Resp BP Pulse Ox 97.8 F 103 18 148/84 96 03/21/18 11:12 03/21/18 11:12 03/21/18 11:12 03/21/18 11:12 03/21/18 11:12 - General physical appearance well developed, well nourished, no distress - Eyes normal ocular movement - ENT normal mucosa, atraumatic, normocephalic - Neck trachea midline - Respiratory normal respiratory effort, clear to auscultation - Cardiovascular Cardiovascular exam: Present: RRR - Abdomen Abdomen general surgery: Present: bowel sounds present, soft, tender (Minimal, expected postoperative tenderness) - Incision Incision: Present: clean and dry, intact - Neurologic Present: CN 2-12 grossly intact - Musculoskeletal Present: normal gait, normal posture - Psychiatric Psychiatric general surgery: Present: appropriate, oriented to person, oriented to place, oriented to time, speech is normal, memory intact - Hospital Course Hospital course: Mr. Estes is a 52 year old male with a history of recurrent diverticulitis. He was admitted to the hospital and did undergo a robotic-assisted sigmoid colectomy with Dr. Roberto. On postoperative day #2, he is tolerating a liquid diet without nausea or vomiting. He is passing flatus and has had a bowel movement. His vital signs are stable and he is afebrile. His pain is well- controlled. He is ambulating and voiding without difficulty. We will begin discharge planning to home and plan for outpatient follow-up in the next 10-14 days. - Time Spent with Patient Total time spent providing and/or coordinating discharge services: Less than 30 minutes - Discharge Medications Prescriptions: Ondansetron ODT [Zofran ODT] 4 mg SL Q6HR PRN #30 tab.rapdis PRN Reason: Nausea OxyCODONE/APAP 5/325 [Percocet 5/325 MG] 1 each PO Q6HR PRN 5 Days #20 tablet PRN Reason: Mild Pain Ibuprofen [Motrin] 800 mg PO Q8HR #40 tablet Docusate [Colace] 100 mg PO BID #30 capsule Home Medications: Amitriptyline [Elavil] 25 mg PO HS 03/21/18 [History] Cholestyramine 1 pack PO BID 03/21/18 [History] DULoxetine [Cymbalta] 30 mg PO DAILY 03/21/18 [History] Docusate [Colace] 100 mg PO BID #30 capsule 03/23/18 [Rx] Ibuprofen [Motrin] 800 mg PO Q8HR #40 tablet 03/23/18 [Rx] Ondansetron ODT [Zofran ODT] 4 mg SL Q6HR PRN #30 tab.rapdis 03/23/18 [Rx] OxyCODONE/APAP 5/325 [Percocet 5/325 MG] 1 each PO Q6HR PRN 5 Days #20 tablet [Rx] Allergies/Adverse Reactions: 3 Allergy/AdvReac Type Severity Reaction Status Date / Time No Known Allergies Allergy Verified 03/21/18 12:01 Date of admission: 03/21/18 18:23 Primary care physician: Ethan Schaffer MD [facility] Anticipated date of discharge: 03/23/18 Labs on day of discharge: Labs from last 24 hours 03/23/18 03/23/18 04:38 04:38 WBC 8.8 RBC 4.62 Hgb 13.0 Hct 39.3 MCV 85.1 MCH 28.1 MCHC 33.1 RDW 12.6 Plt Count 220 MPV 9.9 Immature Gran % 0.3 Seg Neutrophils % 56.9 Lymphocytes % 30.7 Monocytes % 10.7 Eosinophils % 1.1 Basophils % 0.3 Neutrophils # 5.0 Lymphocytes # 2.7 Monocytes # 0.9 Eosinophils # 0.1 Basophils # 0.0 Sodium 138 Potassium 4.0 Chloride 105 Carbon Dioxide 28 BUN 14 Creatinine 1.07 Est GFR ( Amer) > 60 Est GFR (Non-Af Amer) > 60 BUN/Creatinine Ratio 13 Glucose 95 Calculated Osmolality 286 Calcium 8.9 - Patient Status Disposition: Home, Self-Care Condition: Good Functional capacity at discharge: independent ambulation Overall status at discharge: patient is progressing back to baseline - Discharge Instructions Follow Up With: Hina Patiño RAND SEWER [Advanced Practice Nurse] - 04/03/18 1:00 pm Additional Instructions: #1 may shower, no tub bath for 2 weeks #2 wash incisions with soap and water and pat dry daily #3 no lifting, pushing, pulling more than 15 pounds for the next 4 weeks #4 no driving until off narcotics for 24 hours and able to safely react in the car #5 may climb stairs - Diet and Activity Activity: increase activity as tolerated (See additional instructions above) Diet: advance to your usual diet - Attending Attestation For this encounter, I have reviewed the [employer] or PA documentation, treatment plan, and medical decision making; and I have had face to face time with this patient.
[2018-03-23 10:45] VITALS: BP 167/81
== END 2018-03-23 11:55 | disposition home or self-care (01) | DRG 331 ==
LOC: SAMDAY 10:50 → 3ANU 18:23
PROVIDERS: ADMIT Surgery; ATTEND Surgery